=== PATIENT | female | born 1980 | race Caucasian/White ===

== ENCOUNTER 2022-04-22 11:27 | Emergency (ER) | payer SELFPAY ==
[~2022-04-22] VITALS: Ht 165.1 cm; Wt 74.8 kg
[2022-04-22 11:30] VITALS: BP_SYST 150
--- NOTE | 2022-04-22 11:33 | NUR ---
Patient triaged. VSS and patient appears in no acute distress at this time. Accompanied by EMT'S , awaiting available bed, and MD notified of need for MSE.
--- NOTE | 2022-04-22 11:41 | NUR ---
ER DR. SMITH EXAMINING PT
--- NOTE | 2022-04-22 11:46 | NUR ---
Patient does not wish to proceed with medical care recommended by DR. SMITH. Patient given information related to possible complications, up to and including , which could occur as a result of leaving hospital at this time. Patient verbalizes understanding of risks involved leaving against medical advice. Patient has signed AMA form. PT GIVEN MEAL AND HOMELESS RESOURCES PRIOR TO LEAVING.
[2022-04-22 11:47] VITALS: BP_SYST 150
== END 2022-04-22 11:47 | disposition left against medical advice (07) ==
LOC: SED 11:27
DX: R41.82 Altered mental status, unspecified (principal); Z53.21 Procedure and treatment not carried out due to patient leaving prior to being seen by health care provider